=== PATIENT | male | born 1955 | race Caucasian/White ===

== ENCOUNTER → 2017-01-22 09:31 | Day surgery (SDC) | payer BC ==
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
[~2017-01-22 09:31] MED LIST: Buffered Lidocaine 1% SYRIN* 3 ML/SYR SYRINGE INTRADERM ONE; Bupivacaine 0.25% EPI 200,000* 30 ML SDV ONE; Dexamethasone IV* 4 MG/ML 1 ML (4 MG) ONE; Famotidine IV* 10 MG/ML 2 ML (20 mg) ONE; Glycopyrrolate IV* 0.2 MG/ML 1 ML VIAL ONE; HYDROmorphone* 1 MG/ML 1 ML SYR IV PRN; Heparin VIAL(*) 5000 UNITS/ML VIAL (FIVE THOUSAND) ONE; Ketorolac INJ* 30 MG/ML 1 ML VIAL ONE; Lidocaine 2% PF* 5 ML VIAL ONE; Midazolam* 1 MG/ML 2 ML VIAL (2 MG) ONE; Ondansetron INJ* 2 MG/ML VIAL IV PRN; Ondansetron INJ* 2 MG/ML VIAL ONE; Propofol* 10 MG/ML 20 ML BTL IV PUSH ONE; Rocuronium* 10 MG/ML VIAL ONE; Ropivacaine (OR use only) 2 MG/ML 1 ML ONE; ceFAZolin 1 GM in Dextrose (*) 1 GM/50 ML BAG IVPB ONE; ceFAZolin 2 GM PREMIX(*) 2 GM/50 ML BAG IVPB ONE; fentaNYL* 50 MCG/ML 2 ML VIAL (100 MCG VIAL) IV PRN; fentaNYL* 50 MCG/ML 2 ML VIAL (100 MCG VIAL) ONE; oxyCODONE/Acetamin 5/325 MG* TAB ONE; oxyCODONE/Acetamin 5/325 MG* TAB PO PRN
[2017-01-22 17:47] VITALS: BP 139/74
--- NOTE | 2017-01-23 16:52 | OP ---
DATE OF OPERATION: 01/22/17 [facility] DATE OF : 53 SURGEON: Dr. Manuel. RIVET MAKER: YAHAIRA Pedraza ANESTHESIOLOGIST: Dr. Aldana. ANESTHESIA: General with local. PRE-OP DIAGNOSES: 1. Upper midline ventral hernia. 2. Umbilical hernia. POST-OP DIAGNOSES: 1. Upper midline ventral hernia. 2. Umbilical hernia. OPERATIVE PROCEDURE: Laparoscopic repair of umbical and ventral hernia using a Ventralight ST mesh with Echo PS Positioning System, 15x20 cm size mesh. ESTIMATED BLOOD LOSS: Minimal. SPECIMENS: None. COMPLICATIONS: None. DRAINS: None. WOUND CLASSIFICATION: One. DESCRIPTION OF PROCEDURE: Written informed consent was obtained, the abdomen was marked with indelible ink and preoperative antibiotics were administered. The patient was taken to the operating room and placed in the supine position. Sequential compression devices and a warming blanket were applied. General anesthesia was administered. Angela catheter was inserted and the abdomen was prepped and dapped in the usual sterile fashion. Time-out verification was completed. Next a 1% lidocaine with epinephrine was infiltrated in the left upper quadrant. A small transverse incision was made several fingerbreadths below the costal margin laterally. An incision was made and carried down to the visualized fascia. A 15- cm Veress needle was passed through the abdominal wall into the peritoneal cavity in the usual fashion without difficulty. The abdomen was then insufflated to 15 mmHg. Once this had been complete, a 12-mm trocar was passed through this site intraabdominally. Insertion of the camera revealed no infinitive injury from the use of the Veress needle in the left upper quadrant. Two 5-mm ports were placed also in the left side of the abdominal wall, equally spaced between this port and the pelvis. Upon evaluation, it was obvious that there was a large amount of omentum up into the midline ventral hernia which was about 3 to 4 cm above the umbilicus. There was also umbilical hernia. There were no other adhesions, but there was fat contained in both hernias which appeared to be omentum. With care using the LigaSure device as well as some blunt dissection, I was able to reduce the fat from both hernias into the peritoneal cavity without difficulty. The fascial defect was what appeared to be most likely an epigastric hernia, was about 3-cm, and the umbilical hernia was approximately 2 cm. Also noted was a fair amount of preperitoneal fat inferior to the umbilicus and I did excise this using a LigaSure device in preparation for the mesh placement but we could adhere to abdominal wall rather than the fat with the tacking device. Likewise superiorly, the falciform ligament was also taken down, flushed with the anterior abdominal wall. The hernia and the surrounding area were then measured. It was felt that with adequate overlap to cover both hernias, an oval 15 cm x [address] mesh with Echo Positioning System was then placed into the abdominal cavity in the usual fashion. A suture passer was then passed through the anterior abdominal wall at the midline in the bridge between the 2 hernias and the tubing was brought out through the anterior abdominal wall in the usual fashion and then attached syringe which was then inflated and deployed. The balloon attached to the mesh which we then brought up to the anterior abdominal wall. The mesh was oriented nicely and it appeared that we had about a 4 to 5 cm surrounding margin in all directions of the mesh. Once the mesh was adequately, CapSure tacks were then used and placed about a centimeter apart around the periphery of the mesh securely attaching to the anterior abdominal wall. I also placed a circumferential roll-up tacks about 2 cm in from the outside as well. At this point, the mesh sat nicely. Also, it should be noted that we had reduced the intraabdominal pressure to about 10 cm before the mesh was secured to the anterior abdominal wall. All the dissected area of the preperitoneal fat as well as the omentum was evaluated with no evidence of bleeding. The left upper quadrant 12-mm port site was then closed with 2 passes of the EndoClose needle through the fascia and a full-thickness closure was then tied. The remainder of the ports were then removed under direct vision. There is no abdominal wall bleeding. The port sites at the skin level were all closed with subcuticular 4-0 Polysorb suture. Steri-strips were applied. The patient tolerated the procedure, was taken to the recovery room in stable condition. [id number]/[facility] #: [id number] GINI
== END | disposition home or self-care (01) ==
LOC: OR 09:31
PROVIDERS: ATTEND Surgery
DX: K43.9 Ventral hernia without obstruction or gangrene (principal); K42.9 Umbilical hernia without obstruction or gangrene; I10 Essential (primary) hypertension; E66.01 Morbid (severe) obesity due to excess calories; Z68.41 Body mass index [BMI] 40.0-44.9, adult
CPT/HCPCS: A9270-GY; C1781; J0690; J1100; J1644; J1885; J2250; J2405; J2704; J2795; J3010

== ENCOUNTER 2018-07-23 19:14 | Observation (INO) | payer BC ==
[2018-07-23] MEDS ORDERED: NS 0.9% 1000 ML* 2,000 ML IV ONE (19:56)
[2018-07-23] MEDS ORDERED: Aspirin 81 mg CHEW TAB* 81 MG TAB.CHEW PO ONE (19:56)
[2018-07-23 20:13] LABS: ABS Basophils 0.1 10^3/ul (0-0.2); ABS Eosinophils 0 10^3/ul (0-0.6); ABS Lymphocytes 2.6 10^3/ul (1.0-4.8); ABS Monocytes 0.9 10^3/ul (0-0.8); ABS Neutrophils 10.8 10^3/ul (1.5-7.7); ABS Nucleated RBC 0 10^3/ul; Eosinophil % 0.3 % (0-6); Hematocrit 47 % (42-52); Hemoglobin 15.9 g/dl (14.0-18.0); Lymphocyte % 18.2 % (25-47); Mean Corpuscular HGB Conc 34 g/dl (31-36); Mean Corpuscular Hemoglobin 32 pg (27-31); Mean Corpuscular Volume 93 fL (80-94); Mean Platelet Volume 7.7 um3 (7.4-10.4); Nucleated Red Blood Cells % 0; Platelet Count 192 10^3/ul (150-450); Red Blood Count 5.04 10^6/ul (4.00-5.40); Red Cell Distribution Width 13 % (10.5-15); White Blood Count 14.4 10^3/ul (3.5-10.8)
[2018-07-23 20:22] LABS: INR 0.95 (0.77-1.02)
[2018-07-23 20:29] LABS: EGFR Non-African American 66.9 (>60)
--- NOTE | 2018-07-23 21:05 | ED ---
Dizziness - HPI Summary HPI Summary: Patient is a 62 y/o M w/ c/o dizziness, fatigue, and diaphoresis onsetting around 1630 today. is present in the room. Provider in room at 1946. Patient states that he had football practice today. He reports that he had difficulty walking up a hill that he normally has no trouble walking up. Patient also notes BLE ache afterwards. He states his heart was racing as well, chest pain is denied. Patient takes metoprolol. He denies SOB, nausea as well. PCP is Dr. Gilmore. Patient has not had cardiac stress test, no antenna specialist. PMHx of HLD, HTN, not diabetic. Patient does not smoke but chews tobacco. FMHx of [place] in father. In room, he denies any Sx presently. Home medications include Losartin 100 mg daily, metoprolol tartate 25 mg, 1/2 in morning, 1/2 in evening , and livalo, 4 mg daily. He reports taking all his medications today and took an ASA this morning as well. No Hx of blood clots, abdominal pain is denied as well. On triage, associated severity is 1/10, nothing is noted to aggravate/ alleviate Sx. Allergies/Adverse Reactions: Allergies Allergy/AdvReac Type Severity Reaction Status Date / Time fenofibrate AdvReac Intermediate Itching Verified 07/23/18 19:20 - History Of Current Complaint Chief Complaint: EDDizziness Stated Complaint: DIZZINESS/IRREG HR/GENERAL Time Seen by Provider: 07/23/18 19:56 Hx Obtained From: Patient, Family/Educational Technology Coordinator - Onset/Duration: Resolved - patient denies Sx in room Timing: Hours - onset 1630 Severity Initially: Mild - 1/10 associated severity on triage Severity Currently: None - denies Sx in room Character: Dizzy Aggravating Factor(s): Nothing Alleviating Factor(s): Nothing Associated Signs And Symptoms: Positive: Diaphoresis, Palpitations, Other: - BLE ache, fatigue, dizziness. Negative: Nausea, Chest Pain, SOB - Risk Factors Cardiac Risk Factors: Hypertension, Smoking - does not smoke cigarettes, but chews tobacco, Elevated Lipids, Family History - Allergies/Home Medications Allergies/Adverse Reactions: Allergies Allergy/AdvReac Type Severity Reaction Status Date / Time fenofibrate AdvReac Intermediate Itching Verified 07/23/18 19:20 PMH/Surg Hx/FS Hx/Imm Hx Previously Healthy: No Endocrine/Hematology History: Denies: Hx Diabetes, Hx Systemic Lupus Erythematosus Cardiovascular History: Reports: Hx Hypertension - controlled with medication, Other Cardiovascular Problems/Disorders - high cholesterol, controlled with medication Denies: Hx Congestive Heart Failure History: Denies: Hx Dialysis, Hx Renal Disease Musculoskeletal History: Reports: Hx Arthritis - knees Denies: Hx Rheumatoid Arthritis Sensory History: Reports: Hx Contacts or Glasses - reading glasses Denies: Hx Hearing Aid Opthamlomology History: Reports: Hx Contacts or Glasses - reading glasses - Cancer History Hx Chemotherapy: No - Surgical History Surgery Procedure, Year, and Place: at least 3 knee scopes [facility]ie varicose veins [facility]. colonoscopy [facility]. skin graft l butock [facility]. shoulder-right 2013. knee replacement bi-lat 2012 & 2013 Hx Anesthesia Reactions: No Infectious Disease History: No Infectious Disease History: Denies: Traveled Outside the [place] in Last 30 Days - Family History Known Family History: Positive: Cardiac Disease - father had IL - Social History Lives: With Family Alcohol Use: Occasionally Alcohol Amount: 1-2 DRINKS/WEEK Substance Use Type: Reports: None Smoking Status (MU): Never Smoked Tobacco Type: Smokeless Tobacco - chews Amount Used/How Often: 1-2 DRINKS/WEEK Have You Smoked in the Last Year: No Review of Systems Positive: Fatigue, Skin Diaphoresis Eyes: Negative Positive: Other - heart racing . Negative: Chest Pain Negative: Shortness Of Breath Negative: Nausea Positive: Other - BLE ache Skin: Negative Neurological: Other - POSITIVE: dizziness Psychological: Normal All Other Systems Reviewed And Are Negative: Yes Physical Exam - Summary Physical Exam Summary: Appearance: Well-appearing, no pain distress or resp distress at time of exam, obese Skin: Warm, color reflects adequate perfusion, dry Head: Normal Head/Face inspection, atraumatic Eyes: Conjunctiva clear ENT: Normal inspection Neck: Supple, no nodes, no JVD Respiratory: Lungs clear, normal breath sounds, no respiratory distress Cardio: RRR, No murmur, pulses normal, brisk capillary refill Abdomen: Soft, nontender Bowel sounds: Present Musculoskeletal: Strength Intact/ROM intact, no calf tenderness, no edema. Psychological: Normal Neuro: Alert,Ox3, CN II-XII intact, Motor 5/5, muscle tone normal, Sensation intact, no focal deficit GCS 15 NIH zero Triage Information Reviewed: Yes Vital Signs On Initial Exam: Initial Vitals Temp Pulse Resp BP Pulse Ox 97.8 F 77 18 120/72 95 07/23/18 19:18 07/23/18 19:18 07/23/18 19:18 07/23/18 19:18 07/23/18 19:18 Vital Signs Reviewed: Yes Diagnostics - Vital Signs Vital Signs Temp Pulse Resp BP Pulse Ox 07/23/18 20:31 61 15 128/68 96 07/23/18 20:19 66 11 94 07/23/18 19:18 97.8 F 77 18 120/72 95 - Laboratory Lab Results: Lab Results 07/23/18 07/23/18 07/23/18 Range/Units 20:02 20:02 20:02 WBC 14.4 H (3.5-10.8) 10^3/ul RBC 5.04 (4.00-5.40) 10^6/ul Hgb 15.9 (14.0-18.0) g/dl Hct 47 (42-52) % MCV 93 (80-94) fL MCH 32 H (27-31) pg MCHC 34 (31-36) g/dl RDW 13 (10.5-15) % Plt Count 192 (150-450) 10^3/ul MPV 7.7 (7.4-10.4) um3 Neut % (Auto) 75.1 (38-83) % Lymph % (Auto) 18.2 L (25-47) % Smyth % (Auto) 6.0 (0-7) % Eos % (Auto) 0.3 (0-6) % Baso % (Auto) 0.4 (0-2) % Absolute Neuts (auto) 10.8 H (1.5-7.7) 10^3/ul Absolute Lymphs (auto) 2.6 (1.0-4.8) 10^3/ul Absolute Monos (auto) 0.9 H (0-0.8) 10^3/ul Absolute Eos (auto) 0 (0-0.6) 10^3/ul Absolute Basos (auto) 0.1 (0-0.2) 10^3/ul Absolute Nucleated RBC 0 10^3/ul Nucleated RBC % 0 INR (Anticoag Therapy) 0.95 (0.77-1.02) APTT 28.8 (26.0-36.3) seconds D-Dimer, Quantitative < 200 (Less Than 230) ng/mL Sodium 138 (135-145) mmol/L Potassium 4.0 (3.5-5.0) mmol/L Chloride 106 (101-111) mmol/L Carbon Dioxide 24 (22-32) mmol/L Anion Gap 8 (2-11) mmol/L BUN 31 H (6-24) mg/dL Creatinine 1.11 (0.67-1.17) mg/dL Est GFR ( Amer) 81.0 (>60) Est GFR (Non-Af Amer) 66.9 (>60) BUN/Creatinine Ratio 27.9 H (8-20) Glucose 96 (70-100) mg/dL Lactic Acid (0.5-2.0) mmol/L Calcium 9.9 (8.6-10.3) mg/dL Magnesium 2.1 (1.9-2.7) mg/dL Total Bilirubin 0.60 (0.2-1.0) mg/dL AST 27 (13-39) U/L ALT 28 (7-52) U/L Alkaline Phosphatase 64 (34-104) U/L Total Creatine Kinase 632 H (10-223) U/L CK-MB (CK-2) 8.2 H (0.6-6.3) ng/mL Troponin I 0.01 (<0.04) ng/mL B-Natriuretic Peptide ( - 100) pg/mL Total Protein 7.2 (6.4-8.9) g/dL Albumin 4.4 (3.2-5.2) g/dL Globulin 2.8 (2-4) g/dL Albumin/Globulin Ratio 1.6 (1-3) TSH 1.52 (0.34-5.60) mcIU/mL Thyroxine (T4) 7.30 (6.09-12.23) mcg/mL 07/23/18 07/23/18 Range/Units 20:02 20:02 WBC (3.5-10.8) 10^3/ul RBC (4.00-5.40) 10^6/ul Hgb (14.0-18.0) g/dl Hct (42-52) % MCV (80-94) fL MCH (27-31) pg MCHC (31-36) g/dl RDW (10.5-15) % Plt Count (150-450) 10^3/ul MPV (7.4-10.4) um3 Neut % (Auto) (38-83) % Lymph % (Auto) (25-47) % Smyth % (Auto) (0-7) % Eos % (Auto) (0-6) % Baso % (Auto) (0-2) % Absolute Neuts (auto) (1.5-7.7) 10^3/ul Absolute Lymphs (auto) (1.0-4.8) 10^3/ul Absolute Monos (auto) (0-0.8) 10^3/ul Absolute Eos (auto) (0-0.6) 10^3/ul Absolute Basos (auto) (0-0.2) 10^3/ul Absolute Nucleated RBC 10^3/ul Nucleated RBC % INR (Anticoag Therapy) (0.77-1.02) APTT (26.0-36.3) seconds D-Dimer, Quantitative (Less Than 230) ng/mL Sodium (135-145) mmol/L Potassium (3.5-5.0) mmol/L Chloride (101-111) mmol/L Carbon Dioxide (22-32) mmol/L Anion Gap (2-11) mmol/L BUN (6-24) mg/dL Creatinine (0.67-1.17) mg/dL Est GFR ( Amer) (>60) Est GFR (Non-Af Amer) (>60) BUN/Creatinine Ratio (8-20) Glucose (70-100) mg/dL Lactic Acid 0.8 (0.5-2.0) mmol/L Calcium (8.6-10.3) mg/dL Magnesium (1.9-2.7) mg/dL Total Bilirubin (0.2-1.0) mg/dL AST (13-39) U/L ALT (7-52) U/L Alkaline Phosphatase (34-104) U/L Total Creatine Kinase (10-223) U/L CK-MB (CK-2) (0.6-6.3) ng/mL Troponin I (<0.04) ng/mL B-Natriuretic Peptide 50 ( - 100) pg/mL Total Protein (6.4-8.9) g/dL Albumin (3.2-5.2) g/dL Globulin (2-4) g/dL Albumin/Globulin Ratio (1-3) TSH (0.34-5.60) mcIU/mL Thyroxine (T4) (6.09-12.23) mcg/mL Result Diagrams: 07/23/18 20:02 07/23/18 20:02 Lab Statement: Any lab studies that have been ordered have been reviewed, and results considered in the medical decision making process. - Radiology CXR Xray Interpretation: No Acute Changes Radiology Interpretation Completed By: ED Physician - no acute disease, pending official report. - EKG 193 Cardiac Rate: NL - rate of 65 bpm EKG Rhythm: Sinus Rhythm ST Segment: Non-Specific Ectopy: None EKG Interpretation: nml AV/IV CT, nml QTc, and nml axis EKG Comparison: No Significant Change - compared with 01/05/17 2313 Cardiac Rate: NL - rate of 63 bpm EKG Rhythm: Sinus Rhythm ST Segment: Non-Specific Ectopy: None EKG Interpretation: nml AVIVCT, nml QTc, nml axis EKG Comparison: No Significant Change - compared with 07/23/18 Re-Evaluation - Re-Evaluation First Eval Re-Evaluation Time: 23:00 Change: Improved Comment: Pt remains chest pain free. Pt, , son and daughter advised of lab abnormalities, and dx possible anginal equivalent, in addition to elevated BUN and mild rhabdomyolysis. Pt agrees to admission. Dizzy Course/Dx - Course Assessment/Plan: Patient is a 62 y/o M w/ c/o dizziness, fatigue, and diaphoresis onsetting around 1630 today. is present in the room. Provider in room at 1946. Patient states that he had football practice today. He reports that he had difficulty walking up a hill that he normally has no trouble walking up. Patient also notes BLE ache afterwards. He states his heart was racing as well, chest pain is denied. Patient takes metoprolol. He denies SOB, nausea as well. Patient has not had cardiac stress test, no antenna specialist. PMHx of HLD, HTN. FMHx of IL in father. In room, he denies any Sx presently. Home medications include Losartan 100 mg daily, metoprolol tartate 25 mg, 1/2 in morning, 1/2 in evening, and livalo, 4 mg daily. He reports taking all his medications today and took an ASA this morning as well. Physical exam showed no concerning findings. During ED course, patient was given 324 mg ASA, fluids. Labs showed CK-MB 8.2, trop .01, BNP 50, total creatine kinase 632, BUN 31, creatinine 1.11, D-dimer < 200, WBC 14.4. CXR showed no acute disease, pending official report. 1936 showed normal sinus rhythm with rate of 65 bpm, non- specific ST, no ectopy, nml AV/IV CT, nml QTc, and nml axis, no significant change with EKG from 01/05/17. EKG was taken at 2314 once more, showed normal sinus rhythm of 63 bpm, non-specific ST, no ectopy, non-specific ST, nml AVIVCT , nml QTc, nml axis , no change from first EKG. Patients case was discussed with Dr. Whalen at 2305, Dr. Whalen accepts patient for admission. Results of labs were discussed with patient and present family. Patient agrees to admission. Patient was diagnosed with dyspnea on exertion, dehydration, rhabdomyolysis, elevated BUN, leukocytosis. - Diagnoses Differential Diagnosis/HQI/PQRI: Anxiety, Coronary Artery Disease, Metabolic Abnormality, Myocardial Infarction Provider Diagnoses: Dyspnea on exertion, Rhabdomyolysis, Dehydration, Elevated BUN, Leukocytosis - Provider Notifications Discussed Care Of Patient With: Brie Whalen Time Discussed With Above Provider: 23:05 Instructed by Provider To: Admit As Observation Discharge - Sign-Out/Discharge Documenting (check all that apply): Patient Departure - admit - Discharge Plan Condition: Good Disposition: ADMITTED TO [facility] - Billing Disposition and Condition Condition: GOOD Disposition: Admitted to [facility] - Attestation Statements Document Initiated by Scribe: Yes Documenting Scribe: Andrew Hoskins Provider For Whom Scribe is Documenting (Include Credential): Carmen Steven MD Scribe Attestation: Andrew Peña , scribed for Carmen Steven MD on 07/24/18 at 0313. Scribe Documentation Reviewed: Yes Provider Attestation: The documentation as recorded by the Andrew bowen accurately reflects the service I personally performed and the decisions made by me, Carmen Steven MD
[2018-07-23 22:13] LABS: Urine Appearance Cloudy; Urine Blood Negative (Negative); Urine Color Yellow; Urine Ketones Trace (Negative); Urine Protein 1+(30 mg/dL) (Negative); Urine Red Blood Cell Absent (Absent); Urine Specific Gravity 1.024 (1.010-1.030); Urine Urobilinogen Negative (Negative); Urine White Blood Cell Trace(0-5/hpf) (Absent)
[2018-07-24] MEDS ORDERED: Acetaminophen TAB* 325 MG PO PRN (00:07)
[2018-07-24] MEDS ORDERED: NS 0.9% 1000 ML* 1,000 ML IV SCH (00:15)
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
[2018-07-24] MEDS: Enoxaparin(*) 40 MG/0.4 ML SYR SUBCUT SCH ×2 (01:35→23:46)
[2018-07-24] MEDS: diPHENhydraMINE PO* 25 MG PO PRN ×2 (01:35→23:45)
[2018-07-24 05:00] LABS: ABS Basophils 0 10^3/ul (0-0.2); ABS Eosinophils 0.1 10^3/ul (0-0.6); ABS Lymphocytes 3.2 10^3/ul (1.0-4.8); ABS Monocytes 0.6 10^3/ul (0-0.8); ABS Neutrophils 3.5 10^3/ul (1.5-7.7); ABS Nucleated RBC 0 10^3/ul; Eosinophil % 1.9 % (0-6); Hematocrit 42 % (42-52); Hemoglobin 14.5 g/dl (14.0-18.0); Mean Corpuscular HGB Conc 34 g/dl (31-36); Mean Corpuscular Hemoglobin 32 pg (27-31); Mean Corpuscular Volume 93 fL (80-94); Mean Platelet Volume 7.5 um3 (7.4-10.4); Nucleated Red Blood Cells % 0.1; Platelet Count 169 10^3/ul (150-450); Red Blood Count 4.57 10^6/ul (4.00-5.40); Red Cell Distribution Width 13 % (10.5-15); White Blood Count 7.4 10^3/ul (3.5-10.8)
[2018-07-24 05:19] LABS: EGFR Non-African American 93.6 (>60)
[2018-07-24] MEDS: Aspirin EC TAB* 325 MG PO SCH (07:39)
[2018-07-24] MEDS: Multivitamins/Minerals TAB PO SCH (07:39)
--- NOTE | 2018-07-24 08:05 | PN ---
Hospitalist Progress Note Date of Service: 07/23/18 spoke with cardio director of aviation wants to have exercise test will see pt if needed pt is npo except meds overnight already
--- NOTE | 2018-07-24 08:17 | RAD ---
Indication: Chest pain, dizziness. 2 views of the chest including dual energy PA views are reviewed and compared to previous exam dated March 07, 2013. No mediastinal shift is noted. Heart is of normal size and configuration. Lung lawler are clear. No changes noted since prior exam. IMPRESSION: No active cardiopulmonary disease is identified. R0
[2018-07-24] MEDS ORDERED: Metoprolol Tartrate TAB* 25 MG PO SCH (09:00)
[2018-07-24] MEDS ORDERED: Potassium Chlor TAB* 20 MEQ TAB.ER PO ONE ×2 (10:59→13:00)
[2018-07-24] MEDS: Losartan TAB* 25 MG PO SCH (11:59)
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
--- NOTE | 2018-07-24 15:13 | PN ---
Hospitalist Progress Note Date of Service: 07/24/18 HOSPITALIST ADDENDUM Patient seen and examined at bedside. H&P and Cardiology consultation reviewed. Mr. Xie is a 62yo M with PMH of obesity, HTN, tobacco abuse, who presented after a near syncopal episode associated with exertion (walking up hill) yesterday. Labs and EKG reviewed. There were technical issues with his NM study. Patient initially wanted to be discharged and have ST as outpatient, but after conversation about risks, he's agreeable with staying to complete his ST in AM. Will continue to monitor on Telemetry.
[2018-07-25] MEDS: Losartan TAB* 25 MG PO SCH (07:52)
[2018-07-25] MEDS: Multivitamins/Minerals TAB PO SCH (07:52)
[2018-07-25] MEDS: Aspirin EC TAB* 325 MG PO SCH (07:52)
[2018-07-25 12:51] VITALS: BP 123/91
--- NOTE | 2018-07-25 13:34 | RAD ---
HISTORY: Chest pain COMPARISONS: None TECHNIQUE: A 1 day stress/rest myocardial perfusion study was performed, with exercise stress. The exercise portion was performed using the Gokul protocol, for a total METs of 10.1 . The stress portion was monitored by Dr. Alfaro. Gated SPECT imaging was performed, without CT-based attenuation correction secondary to patient physical limitation DOSE: Stress: Technetium 99m tetrofosmin, 25.1 millicuries, injected at 10:53 AM on July 25, 2018 Rest: Technetium 99m tetrofosmin, 10.2 millicuries, injected at 8:05 AM on July 25, 2018 Pharmacologic agent: None FINDINGS: CARDIAC MONITORING: Peak heart rate of 148 bpm, 94% of predicted EF: 55 % TID: 0.94 MOTION: Normal motion, with normal wall thickening. PERFUSION: There is photopenia of the inferior wall which may be artifactual, without reversibility. OTHER: None IMPRESSION: NO DEFINITE REVERSIBLE PERFUSION DEFECTS. ASSESSMENT: LOW RISK. Based on imaging criteria from ACC/AHA 2002. Guideline Update for the Management of Patient's with Chronic Stable Angina, table 23. Noninvasive Risk Stratification.
--- NOTE | 2018-07-26 09:56 | DS ---
CC: Dr. Gilmore; Dr. Carias* DISCHARGE SUMMARY: DATE OF ADMISSION: 07/24/18 DATE OF DISCHARGE: 07/25/18 PRIMARY CARE PHYSICIAN: Dr. Gilmore. CONSULTING BARK TANNER: Dr. Carias. DISCHARGE DIAGNOSIS: Near syncopal episode, multifactorial, likely secondary to dehydration. SECONDARY DIAGNOSES: 1. Hypertension. 2. Hyperlipidemia. 3. Chewing tobacco abuse. 4. Obesity with a BMI of 39. MEDICATIONS: Medication list is unchanged from admission. 1. Aspirin 81 mg p.o. daily. 2. Acetaminophen 1000 mg p.o. daily as needed for pain. 3. Pitavastatin 4 mg half a tablet p.o. at bedtime. 4. Multivitamins 1 tab p.o. daily. 5. Metoprolol tartrate 12.5 mg p.o. b.i.d. 6. Losartan 100 mg p.o. daily. 7. Ibuprofen 800 mg p.o. b.i.d. as needed for pain. 8. Benadryl 25 mg 2 tablets p.o. at bedtime. 9. CoQ10 of 100 mg p.o. q.a.m. HOSPITAL COURSE: Mr. Xie is a 62-year-old male with a past medical history as stated above that presented to the emergency room after a near syncopal episode. The day of admission was a nearly hot day. 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 He usually does that with no issues, but at that time he felt dizzy, lightheaded, weak. He felt that his heart was racing. He sat down. He felt better but when he stood up, he felt lightheaded and had to sit down again twice more. The describes that he was pale, diaphoretic and with rest he felt better. For more details about his presentation, I refer you to his history and physical. The patient was admitted to telemetry floor where he had some sporadic PVCs and 1 brief episode of bigeminy, asymptomatic. Serial troponins were negative. His EKG showed no ischemic changes and the plan was for an exercise Myoview stress test. Due to technical issues, his stress test had to be divided in 2 days and it showed no definite reversible perfusion defects and the assessment was a low risk study with an ejection fraction of 55%. The patient received IV hydration and he was feeling improved. The impression was that his symptoms were likely secondary to dehydration and taking his antihypertensive medications. The patient was educated about the importance of hydration and to avoid caffeine and the Cardiology recommendation was if the patient continues to have episodes as outpatient, we should consider an event monitor to evaluate for arrhythmias. Also of note is the fact that the patient had mild elevation of his CPK up to 870. This should be monitored as outpatient as I believe this episode could be related to exertion, but if persistent as outpatient, it could be secondary to his statin and this may need to be discontinued. The patient is feeling well and felt to be medically stable for discharge at this time. PHYSICAL EXAMINATION: Vital Signs: Temperature 98.3, heart rate is 83, respiratory rate is 16, oxygen saturation is 98% on room air, blood pressure is 123/91. General: The patient is a pleasant obese gentleman, sitting up in bed , in no acute distress, anxious of discharge. CVS: Normal S1, S2. Regular rate and rhythm. Chest: Breath sounds bilaterally with no added sounds. Neuro : He is alert and oriented x3. Able to move all 4 extremities. DIET: Heart-healthy diet. Avoid caffeine. ACTIVITY: As tolerated. DISPOSITION: To home. STATUS WHILE IN THE HOSPITAL: Observation. Please keep in mind this is a summarized version of this patient's hospital stay. If you need more information, please feel free to call me at [phone] or please obtain the full medical records. [id number]/[facility] #: [id number] [facility]
== END 2018-07-25 14:52 | disposition home or self-care (01) ==
LOC: ED 19:14 → MEDTELE 07-24 00:07
PROVIDERS: ADMIT Internal Medicine; ATTEND Internal Medicine
DX: R55 Syncope and collapse (principal); E86.0 Dehydration; I10 Essential (primary) hypertension; E78.5 Hyperlipidemia, unspecified; E66.01 Morbid (severe) obesity due to excess calories; Z68.39 Body mass index [BMI] 39.0-39.9, adult; Z88.8 Allergy status to other drugs, medicaments and biological substances; R07.9 Chest pain, unspecified; K43.9 Ventral hernia without obstruction or gangrene; D72.829 Elevated white blood cell count, unspecified; G47.00 Insomnia, unspecified; E78.00 Pure hypercholesterolemia, unspecified; Z79.899 Other long term (current) drug therapy; F17.200 Nicotine dependence, unspecified, uncomplicated; Z82.49 Family history of ischemic heart disease and other diseases of the circulatory system; R00.1 Bradycardia, unspecified
CPT/HCPCS: 36415; 71046; 78452; 80048; 80053; 80061; 81003; 81015; 82550; 82553; 83605; 83735; 83880; 84436; 84443; 84484; 85025; 85379; 85610; 85730; 87086; 93005; 93017; 93351; 96360; 96361; 99284; A9270-GY; A9502; G0378; J1650

== ENCOUNTER 2019-09-21 11:45 | Emergency (ER) | payer BC, MEDICARE ==
--- NOTE | 2019-09-21 14:25 | ED ---
Complex/Multi-Sys Presentation - HPI Summary HPI Summary: The patient is a 64 y/o M presenting to [facility] accompanied by with a chief complaint of myalgia and arthralgia over the last month which are worse with movement. He states that he has seen Dr. Gilmore for these symptoms, who is concerned for statin reaction as he has elevated CPK with rhabo in the past. He reports a circular erythematous rash under the left maxilla onset two weeks ago that resolved after three days with use of topical Neosporin as treatment. No tick bites. He denies any fevers. He notes weakness especially in the left hand > R hand with grasping. Currently, his symptoms are rated 2/10 in severity. Pain relieved w rest. PMHx: angina, HLD, HTN, arthritis, bilateral knee replacements. Nonsmoker, occasional EtOH, no substance use. Medications reviewed. Allergies noted. - History Of Current Complaint Chief Complaint: EDGeneral Time Seen by Provider: 09/21/19 13:53 Hx Obtained From: Patient Onset/Duration: Gradual Onset, Lasting Weeks - one month, Still Present Timing: Weeks Severity Currently: Moderate Severity Initially: Mild Aggravating Factor(s): movement Alleviating Factor(s): rest Associated Signs And Symptoms: Positive: Weakness - worst in left hand, Other - myalgia, arthralgia, circular erythematous rash under left maxilla (resolved),. Negative: Fever - Allergies/Home Medications Allergies/Adverse Reactions: Allergies Allergy/AdvReac Type Severity Reaction Status Date / Time fenofibrate AdvReac Intermediate Itching Verified 09/21/19 12:10 PMH/Surg Hx/FS Hx/Imm Hx Endocrine/Hematology History: Denies: Hx Diabetes, Hx Systemic Lupus Erythematosus Cardiovascular History: Reports: Hx Angina, Hx Hypercholesterolemia, Hx Hypertension - controlled with medication, Other Cardiovascular Problems/ Disorders - high cholesterol, controlled with medication Denies: Hx Congestive Heart Failure History: Denies: Hx Dialysis, Hx Renal Disease Musculoskeletal History: Reports: Hx Arthritis - knees Denies: Hx Rheumatoid Arthritis Sensory History: Reports: Hx Contacts or Glasses - reading glasses Denies: Hx Hearing Aid Opthamlomology History: Reports: Hx Contacts or Glasses - reading glasses - Cancer History Hx Chemotherapy: No - Surgical History Surgical History: Yes Surgery Procedure, Year, and Place: at least 3 knee scopes [facility]ie varicose veins [facility]. colonoscopy [facility]. skin graft l butock [facility]. shoulder-right 2013. knee replacement bi-lat 2012 & 2013 Hx Anesthesia Reactions: No Infectious Disease History: No Infectious Disease History: Denies: Traveled Outside the [place] in Last 30 Days - Family History Known Family History: Positive: Cardiac Disease - father had [place] - Social History Alcohol Use: Occasionally Alcohol Amount: 1-2 DRINKS/WEEK Hx Substance Use: No Substance Use Type: Reports: None Hx Tobacco Use: No Smoking Status (MU): Never Smoked Tobacco Type: Smokeless Tobacco Amount Used/How Often: 1-2 DRINKS/WEEK Have You Smoked in the Last Year: No Review of Systems Negative: Fever Positive: Arthralgia, Myalgia - diffuse Positive: Rash - erythematous round in the left axilla (resolved) Positive: Weakness - left hand, unable to squeeze, dropping things All Other Systems Reviewed And Are Negative: Yes Physical Exam - Summary Physical Exam Summary: Constitutional: Well-developed, Well-nourished, Alert. (-) Distressed Skin: Warm, Dry, old scars to knees HENT: Normocephalic; Atraumatic Eyes: Conjunctiva normal Neck: Musculoskeletal ROM normal neck. (-) JVD, (-) Stridor, (-) Nuchal rigidity Cardio: Rhythm regular, rate normal, Heart sounds normal; Intact distal pulses; Radial pulses are 2+ and symmetric. (-) Murmur Pulmonary/Chest wall: Effort normal. (-) Respiratory distress, (-) Wheezes, (-) Rales Abd: Soft, (-) tenderness, (-) Distension, (-) Guarding, (-) Rebound Musculoskeletal: Pain with ROM of shoulders as well as with hip flexion. 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 SILT. Psych: Mood and affect Normal Triage Information Reviewed: Yes Vital Signs On Initial Exam: Initial Vitals Temp Pulse Resp BP Pulse Ox 97.8 F 64 16 138/87 96 09/21/19 12:05 09/21/19 12:05 09/21/19 12:05 09/21/19 12:05 09/21/19 12:05 Vital Signs Reviewed: Yes Procedures - Sedation Patient Received Moderate/Deep Sedation with Procedure: No Diagnostics - Vital Signs Vital Signs Temp Pulse Resp BP Pulse Ox 12/08/19 13:37 99.1 F 66 18 131/75 96 09/21/19 12:05 97.8 F 64 16 138/87 96 - Laboratory Result Diagrams: 09/21/19 14:33 09/21/19 14:33 Lab Statement: Any lab studies that have been ordered have been reviewed, and results considered in the medical decision making process. Re-Evaluation - Re-Evaluation First Eval Re-Evaluation Time: 15:40 Comment: We discussed results and plan for discharge with follow up as recommended by Dr. Noble. He understands and agrees with the plan. Complex Multi-Symp Course/Dx Course Of Treatment: 64 y/o male p/w myalgias and weakness >1 month duration. - Hx statin induced myopathy. - PE w weakness of shoulders, hips. Suspicion for myopathy vs polymyalgia rheumatica. Labs notable for normal CPK, elevated CRP. D/w hospitalist who advises outpatient workup, will follow-up with Dr. Gilmore for further workup - Diagnoses Provider Diagnoses: Myalgia, Weakness - Physician Notifications Discussed Care Of Patient With: Yazmin Noble - hospitalist Time Discussed With Above Provider: 15:27 Instructed by Provider To: Other - I discussed the patient's case with Dr. Noble , and she states that the patient can have an outpatient workup for statin- induced myopathy versus PMR. Discharge ED - Sign-Out/Discharge Documenting (check all that apply): Patient Departure - Patient will be discharged home. - Discharge Plan Condition: Stable Disposition: HOME Patient Education Materials: Fatigue (ED) Referrals: Alberto Gilmore MD [Primary Care Provider] - 3 Days Additional Instructions: You were seen in the emergency department for muscle aches and weakness. Your labs showed an elevated CRP. Please follow up with your primary care doctor in the next 2-3 days and return to the emergency department for worsening weakness, fevers,or concerning symptoms. It was a pleasure taking care of you today. - Billing Disposition and Condition Condition: STABLE Disposition: Home - Attestation Statements Document Initiated by Scribe: Yes Documenting Scribe: Shoshana Clark Provider For Whom Scribe is Documenting (Include Credential): Dr. Rafael Castaneda MD Scribe Attestation: IShoshana, scribed for Dr. Rafael Castaneda MD on 09/21/19 at 1602. Scribe Documentation Reviewed: Yes Provider Attestation: The documentation as recorded by the scribe, Shoshana Clark accurately reflects the service I personally performed and the decisions made by me, Dr. Rafael Castaneda MD Status of Scribe Document: Viewed
[2019-09-21 14:40] LABS: ABS Basophils 0.1 10^3/ul (0-0.2); ABS Eosinophils 0.1 10^3/ul (0-0.6); ABS Monocytes 0.6 10^3/ul (0-0.8); ABS Neutrophils 5.3 10^3/ul (1.5-7.7); Eosinophil % 0.9 %; Hematocrit 44 % (42-52); Hemoglobin 15.2 g/dL (14.0-18.0); Lymphocyte % 33.1 %; Mean Corpuscular HGB Conc 35 g/dL (31-36); Mean Corpuscular Hemoglobin 31 pg (27-31); Mean Corpuscular Volume 91 fL (80-94); Mean Platelet Volume 7.4 fL (7.4-10.4); Platelet Count 242 10^3/uL (150-450); Red Blood Count 4.83 10^6 /uL (4.18-5.48); Red Cell Distribution Width 13 % (10-15); White Blood Count 9.1 10^3/uL (3.5-10.8)
[2019-09-21 14:57] LABS: Albumin 3.9 g/dL (3.2-5.2); Albumin/Globulin Ratio 1.1 (1-3); BUN/Creatinine Ratio 19.7 (8-20); C Reactive Protein 20.87 mg/L (<8.01); Calcium 9.5 mg/dL (8.6-10.3); EGFR African American 134.7 (>60); EGFR Non-African American 111.3 (>60); Globulin 3.4 g/dL (2-4); Potassium 4.2 mmol/L (3.5-5.0); Total Bilirubin 0.4 mg/dL (0.2-1.0); Total Protein 7.3 g/dL (6.4-8.9)
[2019-09-21 15:53] VITALS: BP 144/83
[2019-09-21 16:25] LABS: Erythrocyte Sed Rate 25 mm/Hr (0-19)
== END 2019-09-21 15:52 | disposition home or self-care (01) ==
LOC: ED 11:45
DX: M79.10 Myalgia, unspecified site (principal); R53.1 Weakness; E78.00 Pure hypercholesterolemia, unspecified; I10 Essential (primary) hypertension; Z96.653 Presence of artificial knee joint, bilateral; Z88.8 Allergy status to other drugs, medicaments and biological substances
CPT/HCPCS: 36415; 80053; 82550; 85025; 85652; 86140; 99282